=== PATIENT | male | born 1980 | race Caucasian/White ===

== ENCOUNTER 2016-09-02 20:02 | Emergency (ER) | payer OTHER ==
[~2016-09-02] VITALS: Ht 170.2 cm; Wt 81.8 kg
[2016-09-02 20:09] VITALS: BP 177/89; PULSE 77; RESP 18; O2SAT 97
[2016-09-02 22:05] LABS: BASOPHILS % (AUTO) 0.3 % (0-3); EOSINOPHILS % (AUTO) 1.7 % (0-5); MONOCYTES % (AUTO) 8.3 % (4-12); Mean Corpuscular Hemoglobin 31.3 pg (27.0-35.0); Mean Corpuscular Volume 91.2 fL (81-100); NEUTROPHILS % (AUTO) 64.7 % (40-74); Platelet Count 243 bil/L (150-400)
--- NOTE | 2016-09-02 22:18 | ED.REPORT ---
HPI-General Illness Date of Service Sep 02, 2016 ED Provider: Gonzales Bangura MD 36 year old male with a history of panic attacks presents to the ER accompanied by a female systems spec due to a panic attack onset around 17:00 today. Associated symptoms include substernal chest pain rated 5/10 in severity, nausea , and vomiting. Chest pain is abnormal from his typical panic attacks. He states that he lost his parents and best friend about a year ago, and recently moved here from [place]. History of anxiety and depression, and he has tried medications to treat these conditions with no success. Patient denies any significant underlying medical conditions. Nursing Notes Stated Complaint: PANIC ATTACK Chief Complaint: Psychiatric Complaint Nursing Notes Reviewed: Yes Allergies: Coded Allergies: Penicillins (Verified Allergy, Unknown, 09/02/16) General Time Seen by MD: 22:17 Chief Complaint Other (Panic Attack) Hx Obtained From: Patient Arrived By: Walk-in Sudden in Onset?: No Onset Occurred: 5 - 8 hours ago Symptom Duration: Since onset Location: : Chest Quality: Painful Severity: Current: Pain level 5 out of 10 Severity: Maximum: Pain level 5 out of 10 Associated with: Reports: Chest pain, Nausea, Vomiting Similar Sx Previous: Yes Past Medical History Past Medical History Panic attacks Anxiety Denies: COPD, Congestive heart failure, Coronary artery disease, Diabetes mellitus Reports: Depression, Denies: Atrial fibrillation Smoking History Current Every Day Smoker Social History Alcohol Use: "Social" (rarely) 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 Physical Exam Vital Signs Vital Signs Date Time Temp Pulse Resp B/P Pulse Ox O2 Delivery O2 Flow Rate FiO2 09/02/16 20:09 36.6 77 18 177/89 97 Room Air Initial VS: Reviewed Head / Eyes: Atraumatic, Normocephalic Neck: Supple, Non-tender, Full range of motion Abdomen / GI: Soft, Non-tender, No guarding, No rebound, No distention Extremities: Vascular intact, Neuro intact, No swelling, No tenderness Skin: Warm, Dry, No cyanosis General/Constitutional: Awake, Alert, Well developed, Well nourished Behavior: Positive: Anxious Respiratory / Chest: Breath sounds NL, No respiratory distress, No rales, No rhonchi, No wheezing Cardiovascular: Heart rate NL, Regular rhythm, Heart sounds NL, Cap refill not delayed, Peripheral circulation NL Neurologic: Oriented X3, Speech NL, No sensory deficits Tremulous. Psychiatric: Not suicidal, Not homicidal, No hallucinations, Cognitive function NL, Judgment/insight NL, Thought content NL Abnormal Mood/Affect: Positive: Anxious Interpretation & Diagnostics Lab Results Interpretation Result Diagram: 09/02/16219909/02/162199 Test 09/02/16 22:00 White Blood Count 11.3th/mm3 (3.8-10.1) Red Blood Count 4.67mil/mm3 (4.40-5.80) Hemoglobin 14.6g/dL (13.8-17.2) Hematocrit 42.6% (41.0-50.0) Mean Corpuscular Volume 91.2fL (81-100) Mean Corpuscular Hemoglobin 31.3pg (27.0-35.0) Mean Corpuscular Hemoglobin Concent 34.3% (32.0-37.0) Red Cell Distribution Width 13.6% (12.3-15.4) Platelet Count 243bil/L (150-400) Neutrophils (%) (Auto) 64.7% (40-74) Lymphocytes (%) (Auto) 24.7% (14-46) Monocytes (%) (Auto) 8.3% (4-12) Eosinophils (%) (Auto) 1.7% (0-5) Basophils (%) (Auto) 0.3% (0-3) Sodium Level 140mEq/L (134-144) Potassium Level 4.2mEq/L (3.5-5.2) Chloride Level 103mEq/L (97-108) Carbon Dioxide Level 24mmol/L (18-29) Blood Urea Nitrogen 11mg/dL (6-20) Creatinine 0.75mg/dL (0.76-1.27) Estimat Glomerular Filtration Rate 125mL/min (>59) Glucose Level 127mg/dL (60-99) Calcium Level 9.4mg/dL (8.5-10.1) Magnesium Level 1.8mg/dL (1.6-2.6) Total Bilirubin 0.3mg/dL (0.0-1.2) Aspartate Amino Transf (AST/SGOT) 114U/L (0-50) Alanine Aminotransferase (ALT/SGPT) 241U/L (0-44) Alkaline Phosphatase 86U/L (25-150) Troponin T 0.010ug/L (0.0-0.011) Total Protein 7.6g/dL (6.4-8.4) Albumin 4.5g/dL (3.4-5.0) Lipase 43U/L (13-60) Hold Sanchez Top Tube Received (Received) ECG Interpretation ECG Interpretation: Sinus rhythm, rate 73 Time: 21:47 Interpreted by: ED physician X-Ray Chest Interpretation Chest Xray Interpretation: Negative. View: Portable, 1 view Interpretation / Wet Read by: Wet read ED physician Re-Eval/Medical Decision Time of Eval: 22:47 Re-Evaluation/Progress Note: Discussed lab and radiology results and plan to discharge. Patient is amenable to the plan. Return precautions given. All other questions addressed. Counseled Regarding: Diagnosis, Lab results, Need for follow-up, When/why to return to ED Discharge & Departure Primary Impression: Panic attack Additional Impression: Anxiety Disposition: Home Discharge Condition All VS Reviewed: Yes Condition: Stable Patient Instructions: Generalized Anxiety Disorder (DC), Panic Disorder (DC) Additional Instructions: Use lorazepam 1 mg tablets sparingly as needed for panic. Follow up at the [facility] in the coming days for more definitive care. Incidentally, your liver enzymes are abnormal and this needs specific follow-up on its own. Referrals: Jossie Villarreal PA-C (PCP) Mitch Attestation Portions of this note were transcribed by Kt Thorne. I, Dr. Bangura, personally performed the history, physical exam and medical decision-making; I reviewed and confirmed the accuracy of the information in the transcribed note. Signed by: Mitch Rodriguez, 09/02/2016 and 22:47 copies to: Jossie Villarreal PA-C, Kirk H MD Sep 02, 2016 22:18 KT THORNE Sep 02, 2016 22:27
[2016-09-02] MEDS ORDERED: _LORazepam 1 mg Tablet PO PRN (22:25)
[2016-09-02 22:28] LABS: TROPONIN T 0.01 ug/L (0.0-0.011)
[2016-09-02 22:39] LABS: Magnesium 1.8 mg/dL (1.6-2.6)
[2016-09-02 23:10] VITALS: BP 155/93; PULSE 85; RESP 15; O2SAT 96
[2016-09-02 23:18] VITALS: BP 155/93; PULSE 85; RESP 15; O2SAT 96
--- NOTE | 2016-09-03 08:51 | DRSVH ---
PROCEDURE: X-RAY CHEST ONE VIEW, PORTABLE ([id number]) INDICATIONS: chest pain TECHNIQUE: One view of the chest was acquired. COMPARISON: None. FINDINGS: Surgical changes and devices: None. Lungs and pleura: No pleural effusions or pneumothorax. Lungs are clear. Mediastinum: Mediastinal contours appear normal. Heart size is normal. Bones and chest wall: No suspicious bony lesions. Overlying soft tissues appear unremarkable. IMPRESSION: No acute cardiopulmonary disease. Dictated by: Carlos A Berkowitz [facility] Interpreted: Zenia Valles MD on 09/03/2016 at 8:50 Transcribed by: MATIAS on 09/03/2016 at 8:51 Approved by: Zenia Valles MD, PhD on 09/03/2016 at 17:14
[2016-09-04 02:09] LABS: Hepatitis A Antibody IgM Negative (Negative); Hepatitis B Core Antibody IgM Negative (Negative)
== END 2016-09-02 23:20 | disposition home or self-care (01) ==
LOC: SED 20:02
DX: F41.0 Panic disorder [episodic paroxysmal anxiety] (principal); R07.2 Precordial pain; R11.2 Nausea with vomiting, unspecified; F17.200 Nicotine dependence, unspecified, uncomplicated; Z88.0 Allergy status to penicillin
CPT/HCPCS: 36415; 71010; 80053; 83690; 83735; 84484; 85025; 86705; 86709; 87340; 87341; 93005; 96374; 99285; G0472; J2060

== ENCOUNTER 2016-09-22 13:43 | Emergency (ER) | payer OTHER ==
[~2016-09-22] VITALS: Ht 170.2 cm; Wt 81.8 kg
[2016-09-22 13:46] VITALS: BP 133/80; PULSE 67; RESP 16; O2SAT 95
[2016-09-22] MEDS ORDERED: BUPR1FIL3 SL (13:55)
[2016-09-22] MEDS ORDERED: LORA0.5T PO (13:55)
[2016-09-22] MEDS ORDERED: CITA20TA PO (13:55)
[2016-09-22] MEDS ORDERED: GABA300C PO (13:55)
[2016-09-22 14:27] LABS: APPEARANCE,URINE CLEAR (CLEAR,HAZY); COLOR,URINE STRAW (YELLOW); OCCULT BLOOD,URINE NEGATIVE (NEGATIVE); PH,URINE 6.5 (5.0-8.0); UROBILINOGEN,URINE NORMAL (NORMAL)
--- NOTE | 2016-09-22 14:43 | ED.REPORT ---
HPI- Male Date of Service Sep 22, 2016 ED Provider: Shine Neil PA-C Justice is a 36-year-old male who presents with a chief complaint of urinary retention. He states that for approximately one week he has had difficulty urinating associated with left flank pain. He reports a history of kidney stones. He states that this morning he was able to generate a small amount of urine that was unusually dark. Reports a history of back pain for which he takes Neurontin 300 mg 3 times a day. Recently started Suboxone. [id number] history of smoking. Denies fever, chills, malaise, abdominal pain, vomiting, diarrhea, neurological symptoms or other complaints. Nursing Notes Stated Complaint: TROUBLE URINATING Chief Complaint: Male Abdominal Pain Nursing Notes Reviewed: Yes Allergies: Coded Allergies: Penicillins (Verified Allergy, Unknown, 09/22/16) Scheduled Azithromycin (Azithromycin) 1 Gm Packet 1 GM PO ONCE Buprenorphine HCl/Naloxone HCl (Suboxone 8 mg-2 mg Sl Film) 1 Each Film 1 EACH SL DAILY Citalopram Hydrobromide (Celexa) 20 Mg Tablet 20 MG PO DAILY Gabapentin (Neurontin) 300 Mg Capsule 300 MG PO TID Scheduled PRN Lorazepam (Lorazepam) 0.5 Mg Tablet 0.5 MG PO TID PRN PRN For Anxiety General Time Seen by MD: 14:20 Chief Complaint Unable to urinate Past Medical History Past Medical History Panic attacks Anxiety Reports: Depression Smoking History Current Every Day Smoker Social History Alcohol Use: "Social" Drug Use: In recovery Other Social History: Good social support Ambulatory Status Independent Review of Systems General: Denies fever, chills, malaise. HEENT: Denies congestion, headache, sore throat. Respiratory: Denies dyspnea, cough, shortness of breath, wheezing. Cardiovascular: Denies chest pain, palpitations. Gastrointestinal: Denies vomiting, diarrhea, abdominal pain. Genitourinary: Admits frequency, urgency, hematuria. Otherwise as noted in HPI. Physical Exam General: Well appearing, well developed, well nourished, no acute distress. Head: Atraumatic, normocephalic. Eyes: No scleral icterus or injection. No discharge. Vision grossly intact. ENT: Voice clear, hearing grossly intact. Respiratory: Regular rate and rhythm. Breath sounds present, clear to auscultation and equal bilaterally. No respiratory distress. No increased work of breathing, speaks in complete sentences. Cardiovascular: Regular rate and rhythm, without murmur, gallop or rub. No pedal edema. Gastrointestinal: Abdomen flat with mild suprapubic tenderness without guarding or rebound. No masses or distended bladder appreciated. Bowel sounds normoactive. Back: Normal to inspection, no midline spinous process tenderness. Extremely mild left CVA tenderness : Normal circumcised penis without lesions. Testicles and equal bilaterally. Nontender without masses. No hernias. Rectal: Good tone, no masses felt, prostate may be somewhat boggy. Nontender. Skin: Warm and dry. Neurological: Grossly nonfocal. Psychological: Alert and oriented. Speech appropriate, linear and logical. Behavior appropriate. Initial Vital Signs Vital Signs (First) Date Time Temp Pulse Resp B/P Pulse Ox O2 Delivery O2 Flow Rate FiO2 09/22/16 13:46 36.1 67 16 133/80 95 Room Air Initial VS: Reviewed, Vital signs normal Interpretation & Diagnostics Lab Results Interpretation Test 09/22/16 14:18 Urine Color Straw (YELLOW) Urine Appearance Clear (CLEAR,HAZY) Urine pH 6.5 (5.0-8.0) Urine Specific Colt 1.005 (1.003-1.035) Urine Protein Negativemg/dL (NEG,TRACE) Urine Glucose (UA) Negativemg/dL (NEGATIVE) Urine Ketones Negativemg/dL (NEGATIVE) Urine Occult Blood Negative (NEGATIVE) Urine Nitrite Negative (NEGATIVE) Urine Bilirubin Negative (NEGATIVE) Urine Urobilinogen Normalmg/dL (NORMAL) Urine Leukocyte Esterase Negative (NEGATIVE) Urine RBC 0-2/hpf (0-2) Urine WBC 0-5/hpf (0-5) Urine Epithelial Cells Occasional/hpf (NONE-MOD) Urine Crystals None seen (NONE SEEN) Urine Bacteria None/hpf (NONE-FEW) Urine Hyaline Casts None/lpf (NONE) Urine Granular Casts None seen (NONE SEEN) Urine Waxy Casts None seen (NONE SEEN) Urine Red Blood Cell Casts None seen (NONE SEEN) Urine White Blood Cell Casts None seen (NONE SEEN) Urine Mucus None seen (None Seen) Urine Trichomonas None seen (NONE SEEN) Urine Yeast None (NONE SEEN) Urinalysis Comment None Urine Culture Reflexed Not indicated Re-Eval/Medical Decision Med Decision/Clinical Course 36-year-old male with the chief complaint of urinary retention. Reports 1 week history of intermittent urinary retention. One episode of dark urine this morning. Patient reports history of kidney stones. Physical examination reveals only extremely mild left CVA tenderness, normal exam, normal rectal exam. Prostate med been somewhat bloody, pain not reproduced, no nodules. Urinalysis is normal. Postvoid residuals are normal. This point I do not suspect kidney stone, bladder stone, urinary obstruction, urinary tract infection. I discussed this case with Dr. Waddell. She met with and examine the patient. Upon further investigation it is learned that the patient's partner has similar symptoms. Suspicion of chlamydia infection. Offer treatment to both partners with 1 g azithromycin by mouth. Prescription is provided to both. Stable and safe to be discharged home with primary care follow-up instructions, emergency return precautions. Patient understands and agrees with the plan. Discharge & Departure Impression: Primary Impression: Chlamydia infection Ruled Out: UTI (urinary tract infection), Prostatitis, Acute urinary retention , Kidney stone, Bladder stone Disposition: Home Additional Instructions: Evaluation for urinary retention in the emergency department. History, physical examination and urinalysis are reassuring that this is unlikely to be caused by dangerous conditions such as a stone or infection in your kidneys or something wrong with your prostate. Because your partner describes similar symptoms, we believe is reasonable to treat for Chlamydia. I will give you a prescription for azithromycin 1 g. This is drug to be taken 1 time only by both of you. I sent your urine to be tested. We will let you know if it comes up positive. Please contact your primary care provider if your symptoms do not resolve. Return to the emergency department for any new or worsening symptoms including fever, increasing pain or worsening symptoms. Referrals: Jossie Villarreal PA-C (PCP) EDSupervising Provider for APC: Ellyn Waddell MD Attending Statment Patient seen and examined with Mr. Neil. Complaints of urinary frequency urgency and feeling of incomplete voiding. His urine is unremarkable, there is no blood, no white cells, prostate is unremarkable and he has no measurable post void residual. He did recently start Suboxone while urinary retention can be associated with some narcotics this is not a listed side effect for Suboxone when asked about sexually- transmitted diseases both he and his partner be been having urinary symptoms she was recently treated for UTI with no improvement. At this point, with the remainder of the workup unremarkable, the possibility of Chlamydia becomes far more likely. We will treat him and provide a prescription for his partner as well. If he is not improving asked him to return for additional evaluation Shine Neil PA-C Sep 22, 2016 14:43 Ellyn Waddell MD Sep 22, 2016 16:49
[2016-09-22] MEDS ORDERED: AZIT1PAC9 PO (16:57)
[2016-09-22 17:07] VITALS: BP 130/78; PULSE 64; RESP 16; O2SAT 96
== END 2016-09-22 17:08 | disposition home or self-care (01) ==
LOC: SED 13:43
DX: A74.9 Chlamydial infection, unspecified (principal); F17.200 Nicotine dependence, unspecified, uncomplicated; Z88.0 Allergy status to penicillin